=== PATIENT | male | born 1945 | race African-American/Black ===

== ENCOUNTER → 2016-12-03 | Day surgery (SDC) | payer MEDICARE ==
[~2016-12-03] MED LIST: AMLODIPINE BESYL5 MG PO; ASPIRIN81 M2 PO; ASPIRIN81 MG PO; AUGMENTIN875 M1 PO; CLOPIDOGREL75 MG PO; COLACE PO; COREG12.5 MG PO; COREG6.25 MG PO; LISINOPRIL20 MG PO; NORVASC10 MG PO; SIMVASTATIN10 MG PO; ZESTRIL40 MG PO; ZOCOR10 MG PO
--- NOTE | ~2016-12-03 | OR ---
Unit #: [id number] #: [id number] Patient: TRUNG DUKE [id number] [address] [address] [id number] O MR#: [id number] NAME: TRUNG DUKE ROOM: Date of Procedure: 12/03/2016 Admission Date: 12/03/2016 Surgeon: Franky Rothman M.D. : 1945 Attending Physician: Franky Rothman M.D. Primary Care Physician: Bravo Kwok M.D. OPERATIVE REPORT JOB NOTE: VERIFY CC AT THE END OF THE REPORT PROCEDURE PERFORMED Colonoscopy with snare polypectomy. INDICATIONS FOR PROCEDURE The patient with FIT positive, undergoing colonoscopy for evaluation. MEDICATIONS Monitored anesthesia. POSTOPERATIVE FINDINGS 1. Multiple polyps, 1 in ascending, 7 in transverse, and 1 in sigmoid colon. They are all varying in size from 4 to 6 mm. It was snared and sent for histopathology. 2. Good prep. 3. Internal hemorrhoids. PLAN Follow up on the pathology report. Repeat colonoscopy in 3 years. DESCRIPTION OF PROCEDURE The patient was explained of the procedure, risks, and benefits along with risks and benefits of anesthesia. He was brought to the endoscopy room. Propofol anesthesia was given. Rectal exam was done, which was normal. Colonoscope was lubricated, passed up the rectum, advanced under direct vision all the way to the cecum. Cecum was identified by ileocecal valve and appendiceal orifice. I then started to pull the scope out carefully looking. Multiple polyps were seen as described. I retroflexed in the rectum, internal hemorrhoids were noted. Gently, the scope was pulled out. He tolerated it well. Dictated by... Nikki Nunn/carley TD: 12/03/2016 13:50 JOB #: [id number] Unit #: [id number] #: [id number] Patient: TRUNG DUKE OPERATIVE REPORT Page 1 of 1 X Franky Rothman MD X PROCEDURE OPERATIVE NOTE
== END | disposition home or self-care (01) ==
LOC: COPS 07:58
DX: D12.2 Benign neoplasm of ascending colon (principal); D12.3 Benign neoplasm of transverse colon; D12.5 Benign neoplasm of sigmoid colon; K64.8 Other hemorrhoids; I10 Essential (primary) hypertension; Z86.73 Personal history of transient ischemic attack (TIA), and cerebral infarction without residual deficits; Z79.02 Long term (current) use of antithrombotics/antiplatelets; Z79.82 Long term (current) use of aspirin; Z79.899 Other long term (current) drug therapy; Z95.5 Presence of coronary angioplasty implant and graft; Z98.890 Other specified postprocedural states
CPT/HCPCS: 88305